=== PATIENT | male | born 1935 ===

== ENCOUNTER 2017-07-12 12:35 | Emergency (ER) | payer MEDICARE ==
[2017-07-12] MEDS ORDERED: DiphenhydrAMINE 50 mg/ml Inj IVP STA (13:03)
[2017-07-12] MEDS ORDERED: DiphenhydrAMINE 50 mg/ml Inj ONE (13:40)
[2017-07-12 13:53] LABS: BASO % 0.6 % (0.0-2.0); EOS # 0.2 K/uL (0.0-0.7); EOS % 4.5 % (0.0-4.0); HEMOGLOBIN 11.4 g/dL (12.0-18.0); LYMPH # 1.4 K/uL (1.0-4.3); LYMPH % 36.6 % (20.0-40.0); MEAN CELL VOLUME 87.7 fL (80.0-94.0); MEAN CORPUSCULAR HEMOGLOBIN 29.1 pg (27.0-31.0); MEAN CORPUSCULAR HGB CONC 33.2 g/dL (33.0-37.0); MEAN PLATELET VOLUME 7.4 fL (7.2-11.7); MONO # 0.5 K/uL (0.0-0.8); MONO % 13.6 % (0.0-10.0); NEUT # 1.8 K/uL (1.8-7.0); NEUT % 44.7 % (50.0-75.0); NRBC % 0.1 % (0.0-2.0); RBC 3.9 Mil/uL (4.40-5.90); RED CELL DISTRIBUTION WIDTH 14.5 % (11.5-14.5); WHITE BLOOD COUNT 3.9 K/uL (4.8-10.8)
[2017-07-12 14:09] LABS: ALB/GLOB RATIO 1.1 (1.0-2.1); ALBUMIN 3.6 g/dL (3.5-5.0); ALT/SGPT 40 U/L (21-72); AST/SGOT 29 U/L (17-59); BLOOD UREA NITROGEN 18 mg/dL (9-20); CALCIUM 9.2 mg/dl (8.6-10.4); GFR AFRICAN-AMERICAN > 60; GFR NON-AFRICAN AMERICAN > 60; URIC ACID 7.8 mg/dL (3.5-8.5)
--- NOTE | 2017-07-12 14:35 | C.PDOC ---
Time Seen by Provider: 07/12/17 12:57 Chief Complaint (Nursing): Abnormal Skin Integrity History Per: Patient Onset/Duration Of Symptoms: Days (5) Current Symptoms Are (Timing): Still Present Location Of Injury: Right: Ankle (medial) Quality Of Symptoms: Painful, Itching, Swollen. denies: Draining Severity: Moderate Additional History Per: Prior Records Past Medical History Reviewed: Historical Data, Nursing Documentation, Vital Signs Vital Signs: Last Vital Signs Temp 97.5 F L 07/12/17 12:39 Pulse 90 07/12/17 12:39 Resp 18 07/12/17 12:39 BP 126/83 07/12/17 12:39 Pulse Ox 97 07/12/17 12:39 - Medical History PMH: Diabetes, HTN Family History: States: Unknown Family Hx - Social History Hx Alcohol Use: No Hx Substance Use: No Review Of Systems Except As Marked, All Systems Reviewed And Found Negative. Constitutional: Negative for: Fever, Chills, Weakness Cardiovascular: Negative for: Chest Pain Respiratory: Negative for: Shortness of Breath, Hemoptysis Gastrointestinal: Negative for: Vomiting, Abdominal Pain Musculoskeletal: Negative for: Neck Pain, Back Pain Neurological: Negative for: Weakness, Numbness Physical Exam - Physical Exam Appears: Non-toxic, No Acute Distress Skin: Warm, Dry Head: Atraumatic, Normacephalic Eye(s): bilateral: PERRL, EOMI Neck: Normal ROM, Supple Cardiovascular: Rhythm Regular Respiratory: Normal Breath Sounds, No Accessory Muscle Use Gastrointestinal/Abdominal: Soft, No Tenderness Back: No CVA Tenderness Extremity: Normal ROM, No Calf Tenderness, Capillary Refill (wnl in right foot) , Swelling (around right medial maleolus with erythema) Pulses: Right Dorsalis Pedis: Normal Neurological/Psych: Oriented x3, Normal Motor, Normal Sensation ED Course And Treatment - Laboratory Results Result Diagrams: 07/12/17 13:40 07/12/17 13:40 O2 Sat by Pulse Oximetry: 97 Pulse Ox Interpretation: Normal - Other Rad Right ankle x-rays X-Ray: Interpreted by Me, Viewed By Me Interpretation: No fx or dislocation Progress - Interventions Interventions:: Observation - Medications Administered Intravenous: Antihistamine (H-1), NSAID - Data Reviewed Data Reviewed: Lab, Diagnostic imaging, Old records - Patient Status Patient status: Partially improved - Continuity of Care Discussed patient case with:: Patient, Family-HIPPA compliant, ED Nurse - Patient Plan Patient Plan: Discharge, F/U with PCP, Continue present meds Medical Decision Making Medical Decision Making: Insect bite vs. Cellullitis vs. inflammation. Disposition Counseled Patient/Family Regarding: Studies Performed, Diagnosis, Need For Followup, Rx Given - Disposition Referrals: Jayy Chino MD [Staff Provider] - Disposition: HOME/ ROUTINE Disposition Time: 14:36 Condition: STABLE Additional Instructions: Rest and elevate your right leg. Follow up with a primary doctor. Return to the ER if you develop fever, worsening of symptoms or if you have any other concerns. Prescriptions: Cephalexin [Keflex] 500 mg PO QID #40 capsule Naproxen [Naprosyn Tab] 375 mg PO BID PRN #20 tab PRN Reason: Pain, Moderate (4-7) Forms: [facility] (Indonesian), Gen Discharge Inst Indonesian Print Language: [place] - Clinical Impression Clinical Impression: Pain and swelling of right ankle
[2017-07-12 14:58] VITALS: BP 126/80; PULSE 80; RESP 16; TEMP 98.2; O2SAT 98
--- NOTE | 2017-07-12 15:39 | RAD ---
PROCEDURE: Right Ankle Radiographs. HISTORY: Pain/swelling medial aspect. COMPARISON: None FINDINGS: BONES: No acute fracture or destructive bony lesion identified. JOINTS: Normal. No osteoarthritis. Ankle mortise maintained. Talar dome intact SOFT TISSUES: Moderate medial malleolar soft tissue edema identified. OTHER FINDINGS: None. IMPRESSION: Moderate medial malleolar soft tissue edema identified. No fracture, dislocation or subluxation identified at this time.
== END 2017-07-12 15:13 | disposition home or self-care (01) ==
LOC: C.ER 12:35
DX: M25.571 Pain in right ankle and joints of right foot (principal)
CPT/HCPCS: 73610; 80053; 84550; 85025; 85651; 86140; 96374; 96375; 99285; J1200; J1885